=== PATIENT | male | born 1950 | race Caucasian/White ===

== ENCOUNTER 2018-03-01 09:15 | Inpatient (IN) | payer MEDICARE ==
[2018-03-01] MEDS ORDERED: SODIUM CHLORIDE 0.9% 1,000 ML IV STA (09:34)
[2018-03-01] MEDS ORDERED: VANCOMYCIN 1,750 MG in SODIUM CHLORIDE 0.9% 250 ML IVPB STA (09:38)
[2018-03-01] MEDS ORDERED: VANCOMYCIN IV PER PHARMACY 1 EACH MISC MISCELLANE PRN (09:38)
--- NOTE | 2018-03-01 09:38 | ED ---
General Adult HPI - General Chief complaint: Recheck/Abnormal Lab/Rx Stated complaint: Post Op Infection Time Seen by Provider: 03/01/18 09:24 Source: patient, RN notes reviewed Mode of arrival: ambulatory Limitations: no limitations - History of Present Illness Initial comments: Patient 68-year-old male presents to the Emergency room today with a chief complaint of possible infection to the left side of the face. He does admit that he had a cancerous growth removed last week. Patient states that he noticed some redness over the weekend. He did go back to the [facility] and was started on antibiotics Keflex. He states had a total of 3 doses. Patient states redness is worse today and more sensitivity to the left side of the face. Patient does admit to some drainage from the area. Patient denies any other complaints. Patient denies any recent fever, chills, shortness of breath, chest pain, abdominal pain, nausea or vomiting, numbness or tingling, headaches or visual changes, or any other complaints. - Related Data Home Medications Medication Instructions Recorded Confirmed Atorvastatin [Lipitor] 10 mg PO HS 03/01/18 03/01/18 Calcium 333mg/Mag 133mg/Zinc 1 tab PO DAILY 03/01/18 03/01/18 5mg/Vit D 200iu Cephalexin [Keflex] 500 mg PO QID 03/01/18 03/01/18 Enoxaparin [Lovenox] 150 mg SQ DAILY 03/01/18 03/01/18 FLUoxetine HCL [PROzac] 10 mg PO DAILY 03/01/18 03/01/18 Levothyroxine Sodium [Synthroid] 75 mcg PO DAILY 03/01/18 03/01/18 Lisinopril [Zestril] 10 mg PO DAILY 03/01/18 03/01/18 Tamsulosin HCl [Flomax] 0.8 mg PO HS 03/01/18 03/01/18 Vitamin B Complex 1 cap PO DAILY 03/01/18 03/01/18 Warfarin Sodium [Coumadin] 4 mg PO DIRECTED 03/01/18 03/01/18 Allergies Allergy/AdvReac Type Severity Reaction Status Date / Time Latex, Natural Rubber Allergy Rash/Hives Verified 03/01/18 10:27 Review of Systems ROS Statement: Those systems with pertinent positive or pertinent negative responses have been documented in the HPI. ROS Other: All systems not noted in ROS Statement are negative. Past Medical History Past Medical History: CVA/TIA Additional Past Medical History / Comment(s): Skin Cancer History of Any Multi-Drug Resistant Organisms: None Reported Past Surgical History: Bladder Surgery, Prostate Surgery Past Psychological History: No Psychological Hx Reported Smoking Status: Never smoker Past Alcohol Use History: Occasional Past Drug Use History: None Reported General Exam - General Exam Comments Initial Comments: General: The patient is awake and alert, in no distress, and does not appear acutely ill. Eye: Pupils are equal, round and reactive to light, extra-ocular movements are intact. No nystagmus. There is normal conjunctiva bilaterally. No signs of icterus. Ears, nose, mouth and throat: There are moist mucous membranes and no oral lesions. Neck: The neck is supple, there is no tenderness or JVD. Cardiovascular: There is a regular rate and rhythm. No murmur, rub or gallop is appreciated. Respiratory: Lungs are clear to auscultation, respirations are non-labored, breath sounds are equal. No wheezes, stridor, rales, or rhonchi. Musculoskeletal: Normal ROM, no tenderness. Strength 5/5. Sensation intact. Pulses equal bilaterally 2+. Neurological: A&O x 3. CN II-XII intact, There are no obvious motor or sensory deficits. Coordination appears grossly intact. Speech is normal. Skin: Surgical incision to the left side of her forehead. There is local redness surrounding the area going down towards the left cheek. Tender on exam Psychiatric: Cooperative, appropriate mood & affect, normal judgment. Limitations: no limitations Course Vital Signs 03/01/18 03/01/18 09:18 11:00 Temperature 97 F L Pulse Rate 88 80 Respiratory 18 20 Rate Blood Pressure 122/75 124/68 O2 Sat by Pulse 97 98 Oximetry Medical Decision Making - Medical Decision Making Patient's labs been reviewed. Her white count 11.3. Patient's INR 1.8 currently. Patient showed on vancomycin here in the emergency room for outpatient failure for cellulitis. Patient will be admitted to the hospital consult to Dr. Robison - Lab Data Result diagrams: 03/01/18 09:50 03/01/18 09:50 Lab Results 03/01/18 03/01/18 03/01/18 Range/Units 09:50 09:50 09:50 WBC 11.3 H (3.8-10.6) k/uL RBC 5.09 (4.30-5.90) m/uL Hgb 15.7 (13.0-17.5) gm/dL Hct 44.9 (39.0-53.0) % MCV 88.3 (80.0-100.0) fL MCH 30.8 (25.0-35.0) pg MCHC 34.9 (31.0-37.0) g/dL RDW 13.2 (11.5-15.5) % Plt Count 216 (150-450) k/uL Neutrophils % 76 % Lymphocytes % 13 % Monocytes % 7 % Eosinophils % 2 % Basophils % 0 % Neutrophils # 8.6 H (1.3-7.7) k/uL Lymphocytes # 1.5 (1.0-4.8) k/uL Monocytes # 0.8 (0-1.0) k/uL Eosinophils # 0.3 (0-0.7) k/uL Basophils # 0.0 (0-0.2) k/uL PT 16.4 H (9.0-12.0) sec INR 1.8 H (<1.2) APTT 36.0 H (22.0-30.0) sec Sodium 144 (137-145) mmol/L Potassium 4.4 (3.5-5.1) mmol/L Chloride 103 (98-107) mmol/L Carbon Dioxide 28 (22-30) mmol/L Anion Gap 13 mmol/L BUN 20 (9-20) mg/dL Creatinine 0.81 (0.66-1.25) mg/dL Est GFR (CKD-EPI)AfAm >90 (>60 ml/min/1.73 sqM) Est GFR (CKD-EPI)NonAf >90 (>60 ml/min/1.73 sqM) Glucose 79 (74-99) mg/dL Calcium 10.0 (8.4-10.2) mg/dL Total Bilirubin 0.9 (0.2-1.3) mg/dL AST 20 (17-59) U/L ALT 33 (21-72) U/L Alkaline Phosphatase 98 (38-126) U/L Total Protein 7.3 (6.3-8.2) g/dL Albumin 4.3 (3.5-5.0) g/dL Disposition Clinical Impression: Facial cellulitis Disposition: ADMITTED IP TO THIS HOSP Condition: Good Referrals: Harmony Ocasio DO [Primary Care Provider] - 1-2 days Time of Disposition: 11:22
[2018-03-01 10:13] LABS: Basophils % (A) 0 %; Eosinophils # (A) 0.3 k/uL (0-0.7); Eosinophils % (A) 2 %; HCT 44.9 % (39.0-53.0); HGB 15.7 gm/dL (13.0-17.5); Lymphocytes # (A) 1.5 k/uL (1.0-4.8); Lymphocytes % (A) 13 %; MCH 30.8 pg (25.0-35.0); MCHC 34.9 g/dL (31.0-37.0); MCV 88.3 fL (80.0-100.0); Mean Platelet Volume 7.5; Monocytes # (A) 0.8 k/uL (0-1.0); Monocytes % (A) 7 %; Neutrophils # (A) 8.6 k/uL (1.3-7.7); Neutrophils % (A) 76 %; Platelet Count 216 k/uL (150-450); RBC 5.09 m/uL (4.30-5.90); RDW 13.2 % (11.5-15.5); WBC 11.3 k/uL (3.8-10.6)
[2018-03-01 10:22] LABS: ALT 33 U/L (21-72); AST 20 U/L (17-59); Albumin 4.3 g/dL (3.5-5.0); Alkaline Phosphatase 98 U/L (38-126); Anion Gap 13 mmol/L; Blood Urea Nitrogen 20 mg/dL (9-20); Carbon Dioxide 28 mmol/L (22-30); Chloride 103 mmol/L (98-107); Glucose 79 mg/dL (74-99); Potassium 4.4 mmol/L (3.5-5.1); Sodium 144 mmol/L (137-145); Total Bilirubin 0.9 mg/dL (0.2-1.3); Total Protein 7.3 g/dL (6.3-8.2)
[2018-03-01 10:28] LABS: INR 1.8 (<1.2); Prothrombin Time 16.4 sec (9.0-12.0)
[2018-03-01] MEDS ORDERED: ACETAMINOPHEN TAB 325 MG TAB PO STA (11:32)
[2018-03-01] MEDS ORDERED: ONDANSETRON 4 MG/2 ML VIAL IVP PRN (11:43)
[2018-03-01] MEDS ORDERED: NALOXONE 0.4 MG/ML 1 ML VIAL IV PRN (11:43)
[2018-03-01] MEDS ORDERED: SODIUM CHLORIDE 0.9% 1,000 ML IV ONE (11:43)
[2018-03-01] MEDS ORDERED: NON-FORMULARY DRUG (Warfarin Sodium [Coumadin] 4 MG) PO SCH (13:45)
--- NOTE | 2018-03-01 14:57 | P.HPIM ---
History of Present Illness 68-year-old male with baseline speech abdominal distress from previous history of CVA came in with complaints of possible infection of the left scalp patient had a basal cell carcinoma and excision of the cancerous lesion in the dermatology clinic patient was subsequently sutured was given a dose of Keflex after he is found to have redness in the suture line area now he has pus coming out of that area although obvious abscesses not appreciated and patient denied any fever chills patient denied nausea vomiting because of the worsening infection up to 3 doses of Keflex family brought him here. Patient had the excision of this lesion more than a week ago and his is which is expected to be removed on . We'll try to get the sutures removed now Review of Systems REVIEW OF SYSTEMS: CONSTITUTIONAL: No fever, no malaise, no fatigue. HEENT: No recent visual problems or hearing problems. Denied any sore throat. CARDIOVASCULAR: No chest pain, orthopnea, PND, no palpitations, no syncope. PULMONARY: No shortness of breath, no cough, no hemoptysis. GASTROINTESTINAL: No diarrhea, no nausea, no vomiting, no abdominal pain. Normoactive bowel sounds. NEUROLOGICAL: No headaches, no weakness, no numbness. HEMATOLOGICAL: Denies any bleeding or petechiae. GENITOURINARY: Denies any burning micturition, frequency, or urgency. MUSCULOSKELETAL/RHEUMATOLOGICAL: Denies any joint pain, swelling, or any muscle pain. ENDOCRINE: Denies any polyuria or polydipsia. The rest of the 14-point review of systems is negative. 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 History of Any Multi-Drug Resistant Organisms: None Reported Past Surgical History: Bladder Surgery, Orthopedic Surgery, Prostate Surgery, Tonsillectomy Additional Past Surgical History / Comment(s): Bladder cancerous polypectomy, prostrate bxs, skin cancer L forehead removed, extra rib extracted, colonoscopy. Past Anesthesia/Blood Transfusion Reactions: No Reported Reaction Past Psychological History: No Psychological Hx Reported Additional Psychological History / Comment(s): Pt resides with his spouse. He uses a cane to ambulate. He drives. Smoking Status: Never smoker Past Alcohol Use History: Occasional Past Drug Use History: None Reported - Past Family History Father Family Medical History: CVA/TIA Additional Family Medical History / Comment(s): Father had a CVA and a year later from complications at the age of 82yrs. Mother Family Medical History: Liver Disease, Musculoskeletal Disorder, Neurologic Disorder, Osteoarthritis (OA) Additional Family Medical History / Comment(s): Mother had 5 total hip surgeries. She had blood transfusions. She had hepatitis C. She had parkinson' s dx. She at the age of 90yrs. Medications and Allergies Home Medications Medication Instructions Recorded Confirmed Type Atorvastatin [Lipitor] 10 mg PO HS 03/01/18 03/01/18 History Calcium 333mg/Mag 133mg/Zinc 1 tab PO DAILY 03/01/18 03/01/18 History 5mg/Vit D 200iu Cephalexin [Keflex] 500 mg PO QID 03/01/18 03/01/18 History Enoxaparin [Lovenox] 150 mg SQ DAILY 03/01/18 03/01/18 History FLUoxetine HCL [PROzac] 10 mg PO DAILY 03/01/18 03/01/18 History Levothyroxine Sodium [Synthroid] 75 mcg PO DAILY 03/01/18 03/01/18 History Lisinopril [Zestril] 10 mg PO DAILY 03/01/18 03/01/18 History Tamsulosin HCl [Flomax] 0.8 mg PO HS 03/01/18 03/01/18 History Vitamin B Complex 1 cap PO DAILY 03/01/18 03/01/18 History Warfarin Sodium [Coumadin] 4 mg PO DIRECTED 03/01/18 03/01/18 History Allergies Allergy/AdvReac Type Severity Reaction Status Date / Time Latex, Natural Rubber Allergy Rash/Hives Verified 03/01/18 10:27 Physical Exam Vitals: Vital Signs Temp Pulse Pulse Resp BP BP Pulse Ox 03/01/18 13:32 18 03/01/18 13:14 97.7 F 60 18 115/64 94 L 03/01/18 12:27 98.0 F 60 16 132/72 97 03/01/18 11:00 80 20 124/68 98 03/01/18 09:18 97 F L 88 18 122/75 97 Intake and Output 02/28/18 03/01/18 03/01/18 22:59 06:59 14:59 Intake Total 250 Balance 250 Intake: Intake, IV Titration 250 Amount Vancomycin 1,750 mg In 250 Sodium Chloride 0.9% 250 ml @ 125 mls/hr IVPB Q12H [facility] Rx#:[id number] Other: Weight 97.522 kg PHYSICAL EXAMINATION: GENERAL: The patient is alert and oriented x3, not in any acute distress. Well developed, well nourished. HEENT: Pupils are round and equally reacting to light. EOMI. No scleral icterus. No conjunctival pallor. Normocephalic, atraumatic. No pharyngeal erythema. No thyromegaly. CARDIOVASCULAR: S1 and S2 present. No murmurs, rubs, or gallops. PULMONARY: Chest is clear to auscultation, no wheezing or crackles. ABDOMEN: Soft, nontender, nondistended, normoactive bowel sounds. No palpable organomegaly. MUSCULOSKELETAL: No joint swelling or deformity. EXTREMITIES: No cyanosis, clubbing, or pedal edema. NEUROLOGICAL: Gross neurological examination did not reveal any focal deficits. SKIN: Patient had left supraorbital scalp area suture which of which has a redness surrounding the suture line area and on the lateral aspect of the suture line there is pus drainage, anaerobic and aerobic wound cultures will be obtained from that patient does have local is of temperature and bit of tenderness in that area Results CBC & Chem 7: 03/01/18 09:50 03/01/18 09:50 Labs: Abnormal Lab Results - Last 24 Hours (Table) 03/01/18 03/01/18 Range/Units 09:50 09:50 WBC 11.3 H (3.8-10.6) k/uL Neutrophils # 8.6 H (1.3-7.7) k/uL PT 16.4 H (9.0-12.0) sec INR 1.8 H (<1.2) APTT 36.0 H (22.0-30.0) sec Thrombosis Risk Factor Assmnt - Choose All That Apply Any of the Below Risk Factors Present?: Yes Each Factor Represents 1 point: Obesity (BMI >25) Other Risk Factors: Yes Each Risk Factor Represents 2 Points: Age 61-74 years, Malignancy Other congenital or acquired thrombophilia - If yes, enter type in comment: No Thrombosis Risk Factor Assessment Total Risk Factor Score: 5 Thrombosis Risk Factor Assessment Level: High Risk Assessment and Plan Plan: -Infection of the left scalp post surgical suture area, cellulitis of that area : Patient was started on vancomycin alone cultures will be obtained patient doesn't have any history of MRSA in the past patient complains that pain goes into back of the year which is a referred pain there is some tenderness in that area as well may be secondary to liver lymphadenopathy. Patient's disease will be consulted sutures need to be removed -History of basal cell cancer which was recently removed -She of CVA with residual speech abnormalities. -Benign prostatic hypertrophy next and-hypothyroidism -Depression -History of blood disorder as per the patient for which patient is on anticoagulation because of that blood disorder and CVA in the past patient is presently on bridging Lovenox with INR of around 1.9 patient's Coumadin will be resumed repeat INR tomorrow and Lovenox will be continued until the his INR is above 2.5
[2018-03-01] MEDS: VANCOMYCIN 1,750 MG in SODIUM CHLORIDE 0.9% 250 ML IVPB SCH (18:19)
[2018-03-01] MEDS: WARFARIN 2 MG TAB PO SCH (18:22)
[2018-03-01] MEDS: MUPIROCIN 2% OINT 22 GM TUBE TOPICAL SCH (19:53)
[2018-03-01] MEDS: TAMSULOSIN 0.4 MG CAP.ER.24H PO SCH (19:53)
[2018-03-01] MEDS: ATORVASTATIN 10 MG TAB PO SCH (19:53)
--- NOTE | 2018-03-01 22:32 | CONS ---
CONSULTATION DATE OF SERVICE: 03/01/2018 REASON FOR CONSULTATION: Left facial cellulitis. HISTORY OF PRESENT ILLNESS: The patient is a 68-year-old male who recently had a cancerous tumor removed from the left side of his face about a week ago, last Wednesday, in the outpatient setting at [facility]. The patient says over the weekend he noticed slight erythema around the incision site with the area becoming more swollen, red and painful, for which the patient was evaluated in the outpatient setting by his custody officer. The patient was started on oral Keflex, and the patient took about 3 doses. However, the area was becoming more painful. Pain was described to be throbbing, 5 to 6 out of 10, with no radiation for the same 2 to 3 days. The patient also had slight drainage from it and started having some rigors and chills but no high-grade fever. With these symptoms, the patient presented to the [facility] ER, where the patient was evaluated by the ER physician and has been diagnosed with facial cellulitis, failing outpatient Keflex therapy. The patient was started on vancomycin and admitted to hospital. Infectious Disease was consulted for further recommendations regarding antibiotic therapy. REVIEW OF SYSTEMS: CONSTITUTIONAL: Positive for weakness and chills. EYES: No complaint. ENT: As per HPI. RESPIRATORY: No complaint. CARDIOVASCULAR: No complaint. GENITOURINARY: No complaint. GASTROINTESTINAL: No complaint. MUSCULOSKELETAL: No complaint. INTEGUMENTARY: As per HPI. PSYCHOLOGICAL: No complaint. ENDOCRINE: No complaint. NEUROLOGICAL: No complaint. PAST MEDICAL HISTORY: 1. CVA, TIA. 2. Skin cancer. 3. Hypertension. 4. Hyperlipidemia. 5. Bladder cancer. PAST SURGICAL HISTORY: 1. Prostate surgery. 2. Bladder cancer removed. 3. Tonsillectomy. 4. Colonoscopy. 5. Left forehead cancer removed. 6. Rib resection. SOCIAL HISTORY: No history of smoking. Occasionally drinks. No drug use. FAMILY HISTORY: Father with history of CVA, TIA. Mother with history of liver disease and osteoarthritis. ALLERGIES: LATEX. CURRENT MEDICATIONS: 1. Tylenol. 2. [place]oomis. 3. Lipitor. 4. Lovenox. 5. Synthroid. 6. Zestril. 7. Zofran. 8. Flomax. 9. Vancomycin, Pharmacy to dose. 10.Coumadin. PHYSICAL EXAMINATION: Blood pressure 115/64 with a pulse of 60, temperature 97.7. He is 94% on room air. General description is an elderly male lying in bed in no distress. No tachypnea or accessory muscle of respiration use. HEENT examination shows no pallor or scleral icterus. Examination of the left facial area around the surgery he had shows purulent drainage. It has already been cultured. No significant induration or fluctuation was noticed. NECK: Trachea is central. There is no thyromegaly. LUNGS: Unlabored breathing. Clear to auscultation anteriorly. No wheeze or crackle. HEART: S1, S2. Regular rate and rhythm. ABDOMEN: Soft. No tenderness. No guarding or rigidity. EXTREMITIES: No edema of the feet. SKIN EXAMINATION: No rash or mass palpable. Neurologically patient is awake, alert, oriented x3. Mood and affect normal. LABS: Hemoglobin is 15.7, white count 11.3, BUN of 20, creatinine 0.81. Electrolytes have been normal. Blood culture obtained and currently pending. Wound culture currently pending. DIAGNOSTIC IMPRESSION AND PLAN: Patient with left facial cellulitis with surgical site infection in a patient who did have resection of a cancerous tumor from the left facial area, failing outpatient oral Keflex therapy. Concern is likely for a community-associated MRSA infection, less likely a Gram-negative infection. PLAN: 1. Vancomycin, Pharmacy to dose, target trough of 15. 2. ABD/4x4s to be at the site to the area drained. No need for any dressing. This was explained to the RN. 3. We will follow up on the clinical condition as well as cultures to further adjust medication if needed. Thank you for this consultation. Will follow this patient along with you. MMODL / IJN: [id number] /
[2018-03-01] MEDS: ACETAMINOPHEN TAB 325 MG TAB PO PRN (22:47)
[2018-03-02] MEDS: VANCOMYCIN 1,750 MG in SODIUM CHLORIDE 0.9% 250 ML IVPB SCH ×2 (05:39→17:20)
[2018-03-02] MEDS: LEVOTHYROXINE 75 MCG TAB PO SCH (05:39)
[2018-03-02 07:56] LABS: Basophils % (A) 1 %; Eosinophils # (A) 0.2 k/uL (0-0.7); Eosinophils % (A) 3 %; HCT 38.9 % (39.0-53.0); HGB 13.7 gm/dL (13.0-17.5); Lymphocytes # (A) 1.4 k/uL (1.0-4.8); Lymphocytes % (A) 21 %; MCH 31.5 pg (25.0-35.0); MCHC 35.3 g/dL (31.0-37.0); MCV 89.4 fL (80.0-100.0); Mean Platelet Volume 7.2; Monocytes # (A) 0.8 k/uL (0-1.0); Monocytes % (A) 11 %; Neutrophils # (A) 4.4 k/uL (1.3-7.7); Neutrophils % (A) 63 %; Platelet Count 194 k/uL (150-450); RBC 4.35 m/uL (4.30-5.90)
[2018-03-02 08:20] LABS: Anion Gap 10 mmol/L; Blood Urea Nitrogen 16 mg/dL (9-20); Calcium 8.9 mg/dL (8.4-10.2); Carbon Dioxide 25 mmol/L (22-30); Chloride 107 mmol/L (98-107); Glucose 88 mg/dL (74-99); Potassium 4.3 mmol/L (3.5-5.1); Sodium 142 mmol/L (137-145)
[2018-03-02] MEDS: LISINOPRIL 10 MG TAB PO SCH ×2 (08:45→10:18)
[2018-03-02] MEDS: ACETAMINOPHEN TAB 325 MG TAB PO PRN ×2 (08:46→20:39)
[2018-03-02] MEDS: ENOXAPARIN 150 MG/ML SYRINGE SQ SCH (08:49)
[2018-03-02] MEDS: MUPIROCIN 2% OINT 22 GM TUBE TOPICAL SCH ×2 (09:27→20:40)
[2018-03-02] MEDS: FLUoxetine HCL 10 MG CAP PO SCH (12:55)
--- NOTE | 2018-03-02 16:00 | PN ---
PROGRESS NOTE DATE OF SERVICE: 03/02/2018. REASON FOR FOLLOWUP: Left facial cellulitis and surgical site infection. INTERVAL HISTORY: The patient is afebrile. The patient did have stitches removed and drainage of that abscess. The patient tolerated the procedure. Pain is currently controlled. Denies having any chest pain, shortness of breath. No cough. No abdominal pain. No diarrhea. EXAMINATION: Blood pressure 119/75, pulse of 60, temperature 97.2. He is 94% on room air. General description is an elderly male up in the chair in no distress. HEENT examination: The left facial side of the surgical site is currently covered with no drainage on the abscess. Did have evidence of a postauricular lymphadenopathy. Lungs unlabored breathing. Clear to auscultation anteriorly. Heart S1, S2. Regular rate and rhythm. Abdomen soft, no tenderness. LABS: Hemoglobin 13.5, white count 7.0, BUN of 15, creatinine 0.73. Wound culture currently pending. DIAGNOSTIC IMPRESSION AND PLAN: Patient with left facial cellulitis with surgical site infection. Culture positive for gram-positive cocci, more likely Staphylococcus aureus. Give the patient vancomycin while waiting for the culture to finalize to determine discharge antibiotics. Continue supportive care. MMODL / IJN: [id number] /
--- NOTE | 2018-03-02 16:57 | CONS ---
CONSULTATION DATE OF CONSULT: 03/01/2018. REQUESTING PHYSICIAN: Dr. Wong. REASON FOR CONSULTATION: Cellulitis. HPI: The patient is a 68-year-old male presenting today with a erythematous well- demarcated plaque on the left side of her face. The patient was seen on 02/23/2018 for Mohs surgery of a nodular BCC at [facility]. Patient states that on 02/26/2018, he started experiencing pain and swelling around the incision site. The patient was seen in Dermatology clinic on 02/28/2018 for possible infection. Patient was given Keflex 500 mg 4 times a day x10 days and mupirocin to apply b.i.d. topically. The patient states he took 2 Keflex, on 02/28/2018 and 1 on 03/01/2018. The patient noted increased drainage and redness and decided to go to the hospital. PAST MEDICAL HISTORY: Patient has a history of a BCC on the left inferior central forehead, arthritis , BPH, hypercholesteremia, hypothyroidism, prostate cancer, and stroke. PAST SURGICAL HISTORY: Patient had Mohs surgery for nodular BCC on 02/23/2018. MEDICATION: On admission see chart. ALLERGIES: LATEX. SOCIAL HISTORY: The patient denies tobacco or illegal substance abuse. Admits to one 12 ounces beer daily. REVIEW OF SYSTEMS: Vital signs: Temperature is 97.2 degrees Fahrenheit, pulse is 60 beats per minute, and respirations 18 per minute. Blood pressure is 119/75. GENERAL: The patient is currently in no apparent distress. He is alert and oriented x3. He is well nourished, well developed, cooperative, not anxious or agitated. Neurological: Cranial nerves 2- 12 are grossly intact. Head and neck. HEAD: Normocephalic and atraumatic. NECK: Supple. Trachea is midline. No JVD noted. Lungs, respirations are unlabored. Extremities, no focal neurological defects noted. Skin erythematous, tender, fluctuant plaque on the left forehead and face. LABORATORY DATA: See chart. IMPRESSION AND RECOMMENDATIONS: Abscess- sutures removed in hospital. Abscess draining from a small opening. Mupirocin ordered b.i.d. with dressing changes and continue vancomycin while cultures are pending. Patient is to follow up as an outpatient at Dermatology Clinic when he is DC from hospital. Thank you for this consult. MMODL / IJN: [id number] / MTDD
[2018-03-02] MEDS: WARFARIN 2 MG TAB PO SCH (17:20)
--- NOTE | 2018-03-02 18:14 | P.PN ---
Subjective Progress Note Date: 03/02/18 Progress note being dictated for Dr. Marino. Interval history:68-year-old male with baseline speech abdominal distress from previous history of CVA came in with complaints of possible infection of the left scalp patient had a basal cell carcinoma and excision of the cancerous lesion in the dermatology clinic patient was subsequently sutured was given a dose of Keflex after he is found to have redness in the suture line area now he has pus coming out of that area although obvious abscesses not appreciated and patient denied any fever chills patient denied nausea vomiting because of the worsening infection up to 3 doses of Keflex family brought him here. Patient had the excision of this lesion more than a week ago and his is which is expected to be removed on . We'll try to get the sutures removed now Review of Systems REVIEW OF SYSTEMS: CONSTITUTIONAL: No fever, no malaise, no fatigue. HEENT: No recent visual problems or hearing problems. Denied any sore throat. CARDIOVASCULAR: No chest pain, orthopnea, PND, no palpitations, no syncope. PULMONARY: No shortness of breath, no cough, no hemoptysis. GASTROINTESTINAL: No diarrhea, no nausea, no vomiting, no abdominal pain. Normoactive bowel sounds. NEUROLOGICAL: No headaches, no weakness, no numbness. HEMATOLOGICAL: Denies any bleeding or petechiae. GENITOURINARY: Denies any burning micturition, frequency, or urgency. MUSCULOSKELETAL/RHEUMATOLOGICAL: Denies any joint pain, swelling, or any muscle pain. ENDOCRINE: Denies any polyuria or polydipsia. The rest of the 14-point review of systems is negative. 03/02/18 evaluated by dermatology, sutures removed with recommendations pending. Maintained on IV antibiotics of vancomycin. Afebrile, normal WBC. Cultures pending. Objective - Vital Signs Vital signs: Vital Signs Temp 97.6 F 03/02/18 16:03 Pulse 64 03/02/18 16:03 Resp 16 03/02/18 16:03 BP 110/71 03/02/18 16:03 Pulse Ox 98 03/02/18 16:03 Intake & Output 03/01/18 03/02/18 03/02/18 18:59 06:59 18:59 Intake Total 250 300 Balance 250 300 Weight 97.522 kg Intake: Intake, IV Titration 250 300 Amount Sodium Chloride 0.9% 1, 300 000 ml @ 100 mls/hr IV . Q10H [facility] Rx#:[id number] Vancomycin 1,750 mg In 250 Sodium Chloride 0.9% 250 ml @ 125 mls/hr IVPB Q12H [facility] Rx#:[id number] Other: Voiding Method Toilet Toilet Urinal Urinal # Voids 2 2 - Exam GENERAL: The patient is alert and oriented x3, not in any acute distress. Well developed, well nourished. HEENT: Pupils are round and equally reacting to light. EOMI. No scleral icterus. No conjunctival pallor. Normocephalic, atraumatic. No pharyngeal erythema. No thyromegaly. CARDIOVASCULAR: S1 and S2 present. No murmurs, rubs, or gallops. PULMONARY: Chest is clear to auscultation, no wheezing or crackles. ABDOMEN: Soft, nontender, nondistended, normoactive bowel sounds. No palpable organomegaly. MUSCULOSKELETAL: No joint swelling or deformity. EXTREMITIES: No cyanosis, clubbing, or pedal edema. NEUROLOGICAL: Gross neurological examination did not reveal any focal deficits. SKIN: Patient had left supraorbital scalp area suture removed; pus drainage, and bit of tenderness in that area - Labs CBC & Chem 7: 03/02/18 07:11 03/02/18 07:11 Labs: Abnormal Lab Results - Last 24 Hours (Table) 03/02/18 Range/Units 07:11 Hct 38.9 L (39.0-53.0) % Microbiology - Last 24 Hours (Table) 03/01/18 10:12 Gram Stain - Preliminary Face Wound Culture - Preliminary 03/01/18 09:50 Blood Culture - Preliminary Blood No Growth after 24 hours 03/01/18 13:48 Anaerobic Culture - Preliminary Face Assessment and Plan Assessment: -Infection of the left scalp post surgical suture area, cellulitis of that area -History of basal cell cancer which was recently removed -She of CVA with residual speech abnormalities. -Benign prostatic hypertrophy next and-hypothyroidism -Depression -History of blood disorder as per the patient for which patient is on anticoagulation because of that blood disorder and CVA in the past patient is presently on bridging Lovenox with INR of around 1.9 patient's Coumadin will be resumed repeat INR tomorrow and Lovenox will be continued until the his INR is above 2.5 Plan: Continue on current medication regime or monitoring and symptomatic treatment. Maintain IV antibiotics as per infectious disease. Cultures pending. Increase ambulation as tolerated. The impression and plan of care has been dictated as directed. : I performed a history and examination of this patient, discussed the same with the dictator. I agree with the dictator's note ,documented as a scribe. Any additional findings or plans will be noted.
[2018-03-02] MEDS: TAMSULOSIN 0.4 MG CAP.ER.24H PO SCH (20:39)
[2018-03-02] MEDS: ATORVASTATIN 10 MG TAB PO SCH (20:39)
[2018-03-03] MEDS ORDERED: VANCOMYCIN TROUGH DUE 1 EACH MISC MISCELLANE ONE (05:00)
[2018-03-03 05:46] LABS: INR 1.9 (<1.2); Prothrombin Time 17.7 sec (9.0-12.0)
[2018-03-03 05:49] LABS: Anion Gap 13 mmol/L; Blood Urea Nitrogen 20 mg/dL (9-20); Calcium 9.2 mg/dL (8.4-10.2); Carbon Dioxide 24 mmol/L (22-30); Chloride 105 mmol/L (98-107); Glucose 94 mg/dL (74-99); Potassium 4.1 mmol/L (3.5-5.1); Sodium 142 mmol/L (137-145)
[2018-03-03] MEDS: VANCOMYCIN 1,750 MG in SODIUM CHLORIDE 0.9% 250 ML IVPB SCH ×2 (06:01→19:08)
[2018-03-03] MEDS: LEVOTHYROXINE 75 MCG TAB PO SCH (06:01)
[2018-03-03] MEDS: ACETAMINOPHEN TAB 325 MG TAB PO PRN (06:09)
[2018-03-03] MEDS: ENOXAPARIN 150 MG/ML SYRINGE SQ SCH (08:35)
[2018-03-03] MEDS: HYDROcodone/APAP 5-325MG 1 EACH TAB PO PRN ×2 (08:35→16:31)
[2018-03-03] MEDS: FLUoxetine HCL 10 MG CAP PO SCH (08:36)
[2018-03-03] MEDS: MUPIROCIN 2% OINT 22 GM TUBE TOPICAL SCH ×2 (08:39→20:40)
[2018-03-03] MEDS: LISINOPRIL 10 MG TAB PO SCH (08:39)
--- NOTE | 2018-03-03 15:52 | PN ---
PROGRESS NOTE DATE OF SERVICE: 03/03/2018. REASON FOR FOLLOWUP: Left facial cellulitis and surgical site infection. INTERVAL HISTORY: The patient is afebrile. The patient did mention overall pain and swelling to the left facial area has improved. Denies having any chest pain, shortness of breath or cough. No abdominal pain, no diarrhea. EXAMINATION: Blood pressure is 107/58 with a pulse of 56, temperature 97.6. He is 94% on room air. General description is an elderly male up in the chair in no distress. HEENT EXAMINATION: Left facial area wound swelling and redness improved, minimal drainage. LUNGS: Unlabored breathing. Clear to auscultation anteriorly. HEART: S1, S2. Regular rate and rhythm. ABDOMEN: Soft, no tenderness. LABS: INR is 1.9 with a BUN of 20, creatinine 0.80. White count was 14.8. Blood culture so far negative. DIAGNOSTIC IMPRESSION AND PLAN: Patient with left facial cellulitis with surgical site infection, status post removal of the stitches and abscess has been drained, currently responding to vancomycin, which will be continued. Wait for those cultures to finalize to determine discharge antibiotics. Continue supportive care. MMODL / IJN: [id number] /
--- NOTE | 2018-03-03 16:58 | P.PN ---
Subjective Progress Note Date: 03/03/18 Progress note being dictated for Dr. Mraino. Interval history:68-year-old male with baseline speech abdominal distress from previous history of CVA came in with complaints of possible infection of the left scalp patient had a basal cell carcinoma and excision of the cancerous lesion in the dermatology clinic patient was subsequently sutured was given a dose of Keflex after he is found to have redness in the suture line area now he has pus coming out of that area although obvious abscesses not appreciated and patient denied any fever chills patient denied nausea vomiting because of the worsening infection up to 3 doses of Keflex family brought him here. Patient had the excision of this lesion more than a week ago and his is which is expected to be removed on . We'll try to get the sutures removed now Review of Systems REVIEW OF SYSTEMS: CONSTITUTIONAL: No fever, no malaise, no fatigue. HEENT: No recent visual problems or hearing problems. Denied any sore throat. CARDIOVASCULAR: No chest pain, orthopnea, PND, no palpitations, no syncope. PULMONARY: No shortness of breath, no cough, no hemoptysis. GASTROINTESTINAL: No diarrhea, no nausea, no vomiting, no abdominal pain. Normoactive bowel sounds. NEUROLOGICAL: No headaches, no weakness, no numbness. HEMATOLOGICAL: Denies any bleeding or petechiae. GENITOURINARY: Denies any burning micturition, frequency, or urgency. MUSCULOSKELETAL/RHEUMATOLOGICAL: Denies any joint pain, swelling, or any muscle pain. ENDOCRINE: Denies any polyuria or polydipsia. The rest of the 14-point review of systems is negative. 03/02/18 evaluated by dermatology, sutures removed with recommendations pending. Maintained on IV antibiotics of vancomycin. Afebrile, normal WBC. Cultures pending 03/03/2018 no overnight events. Significant improvement in facial edema. Maintained on IV vancomycin as per infectious disease. Wound culture reporting presumptive staph aureus. Afebrile, normal WBC. INR 1.9. Good diet intake with no nausea vomiting or diarrhea. Denies chest pain, palpitations or shortness of breath. Denies cough. Objective - Vital Signs Vital signs: Vital Signs Temp 97.6 F 03/03/18 15:00 Pulse 66 03/03/18 15:00 Resp 18 03/03/18 15:00 BP 122/64 03/03/18 15:00 Pulse Ox 96 03/03/18 15:00 Intake & Output 03/02/18 03/03/18 03/03/18 18:59 06:59 18:59 Intake Total 300 260 Balance 300 260 Intake: IV 260 Invasive Line 1 10 Vancomycin 1,750 mg In 250 Sodium Chloride 0.9% 250 ml @ 125 mls/hr IVPB Q12H [facility] Rx#:[id number] Oral 300 Other: Voiding Method Toilet Toilet Urinal Urinal # Voids 2 1 1 - Exam GENERAL: The patient is alert and oriented x3, sitting up in chair, no acute distress. Well developed, well nourished. HEENT: Pupils are round and equally reacting to light. EOMI. No scleral icterus. No conjunctival pallor. Normocephalic, atraumatic. CARDIOVASCULAR: S1 and S2 present. No murmurs, rubs, or gallops. PULMONARY: Chest is clear to auscultation, no wheezing or crackles. ABDOMEN: Soft, nontender, nondistended, normoactive bowel sounds. No palpable organomegaly. MUSCULOSKELETAL: No joint swelling or deformity. EXTREMITIES: No cyanosis, clubbing, or pedal edema. NEUROLOGICAL: Gross neurological examination did not reveal any focal deficits. SKIN: left supraorbital scalp area dressing with minimal drainage. Edema, tenderness, erythema improving. Microbiology 03/01/18 13:48 Face Anaerobic Culture - Preliminary Presumptive Staph aureus 03/01/18 10:12 Face Gram Stain - Final 03/01/18 10:12 Face Wound Culture - Final 03/01/18 09:50 Blood Blood Culture - Preliminary No Growth after 48 hours - Labs CBC & Chem 7: 03/02/18 07:11 03/03/18 05:21 Labs: Abnormal Lab Results - Last 24 Hours (Table) 03/03/18 Range/Units 05:21 PT 17.7 H (9.0-12.0) sec INR 1.9 H (<1.2) Microbiology - Last 24 Hours (Table) 03/01/18 13:48 Anaerobic Culture - Preliminary Face Presumptive Staph aureus 03/01/18 10:12 Gram Stain - Final Face Wound Culture - Final 03/01/18 09:50 Blood Culture - Preliminary Blood No Growth after 48 hours Assessment and Plan Assessment: -Infection of the left scalp post surgical suture area, cellulitis of that area , wound cultures with presumptive staph currently -History of basal cell cancer which was recently removed -She of CVA with residual speech abnormalities. -Benign prostatic hypertrophy next and-hypothyroidism -Depression -History of blood disorder as per the patient for which patient is on anticoagulation because of that blood disorder and CVA in the past patient is presently on bridging Lovenox with INR of around 1.9 patient's Coumadin will be resumed repeat INR tomorrow and Lovenox will be continued until the his INR is above 2.5 Plan: Continue on current medication regime or monitoring and symptomatic treatment. Maintain IV antibiotics as per infectious disease. Discharge planning in progress pending final Cultures. Increase ambulation as tolerated. The impression and plan of care has been dictated as directed. : I performed a history and examination of this patient, discussed the same with the dictator. I agree with the dictator's note ,documented as a scribe. Any additional findings or plans will be noted.
[2018-03-03] MEDS: WARFARIN 2 MG TAB PO SCH (19:08)
[2018-03-03] MEDS: TAMSULOSIN 0.4 MG CAP.ER.24H PO SCH (20:40)
[2018-03-03] MEDS: ATORVASTATIN 10 MG TAB PO SCH (20:57)
[2018-03-03 22:29] VITALS: RESP 16
[2018-03-04] MEDS: LEVOTHYROXINE 75 MCG TAB PO SCH (05:31)
[2018-03-04] MEDS: VANCOMYCIN 1,750 MG in SODIUM CHLORIDE 0.9% 250 ML IVPB SCH (05:31)
[2018-03-04] MEDS: HYDROcodone/APAP 5-325MG 1 EACH TAB PO PRN (05:35)
[2018-03-04] MEDS: LISINOPRIL 10 MG TAB PO SCH (07:52)
[2018-03-04] MEDS: FLUoxetine HCL 10 MG CAP PO SCH (07:52)
[2018-03-04] MEDS: ENOXAPARIN 150 MG/ML SYRINGE SQ SCH (07:52)
[2018-03-04] MEDS: MUPIROCIN 2% OINT 22 GM TUBE TOPICAL SCH (07:53)
[2018-03-04 08:17] VITALS: BP 122/70; PULSE 60; TEMP 98
[2018-03-04 08:21] LABS: Anion Gap 13 mmol/L; Blood Urea Nitrogen 22 mg/dL (9-20); Carbon Dioxide 25 mmol/L (22-30); Chloride 103 mmol/L (98-107); Glucose 89 mg/dL (74-99); Potassium 4.4 mmol/L (3.5-5.1); Sodium 141 mmol/L (137-145)
[2018-03-04 13:30] LABS: Prothrombin Time 17.8 sec (9.0-12.0)
--- NOTE | 2018-03-04 13:53 | PN ---
PROGRESS NOTE DATE OF SERVICE: 03/04/2018 REASON FOR FOLLOWUP: Left facial cellulitis, surgical site infection. INTERVAL HISTORY: The patient is afebrile, he is feeling better. Pain to the left facial area is currently down to 2/10. Denies having any chest pain, shortness of breath, no cough, no abdominal pain and no diarrhea. PHYSICAL EXAMINATION: Blood pressure 122/70 with a pulse of 80, temperature 98. He is 96% on room air. General description is a middle-aged male up in the chair in no distress. HEENT EXAMINATION: Left facial swelling, redness which improved. LUNGS: Unlabored breathing, clear to auscultation anteriorly. HEART: S1, S2. Regular rate and rhythm. ABDOMEN: Soft, no tenderness. LABS: BUN of 22, creatinine 0.76. Wound culture finalized with MSSA blood culture, negative. DIAGNOSTIC IMPRESSION AND PLAN: Patient with left facial cellulitis, site of a surgical resection of a tumor with drainage of the abscess. Culture with methicillin-susceptible Staphylococcus aureus. antibiotic switched over to Keflex 500 mg 3 times a day for another 10 days. Patient advised to monitor his INR closely while on antibiotic and will re-evaluate the patient after about a week. MMODL / IJN: [id number] /
--- NOTE | 2018-03-04 17:05 | P.DS ---
Providers Date of admission: 03/01/18 11:36 Expected date of discharge: 03/04/18 Attending physician: Luan Marino Consults: 03/01/18 11:43 Consult Physician Stat Consulting Provider: Dianne Robison Consult Reason/Comments: Facial cellulitis Do you want consulting provider notified?: Yes 03/01/18 13:46 Consult Physician Routine Consulting Provider: Javid Ferrara Consult Reason/Comments: Facial Cellulitis Do you want consulting provider notified?: Yes Primary care physician: Harmony Ocasio Hospital Course: Final Diagnoses: -Infection of the left scalp post surgical suture area, cellulitis of that area , wound cultures with MSSA -History of basal cell cancer which was recently removed -She of CVA with residual speech abnormalities. -Benign prostatic hypertrophy next and-hypothyroidism -Depression -History of blood disorder as per the patient for which patient is on anticoagulation because of that blood disorder and CVA in the past patient is presently on bridging Lovenox with Coumadin. INR currently 2. Hospital course: This is a 68-year-old male with baseline speech abdominal distress from previous history of CVA came in with complaints of possible infection of the left scalp patient had a basal cell carcinoma and excision of the cancerous lesion in the dermatology clinic patient was subsequently sutured was given a dose of Keflex after he is found to have redness in the suture line area now he has pus coming out of that area although obvious abscesses not appreciated and patient denied any fever chills patient denied nausea vomiting because of the worsening infection up to 3 doses of Keflex family brought him here. Patient had the excision of this lesion more than a week ago. Evaluated by dermatology, sutures removed. Evaluated by infectious disease. Maintained on IV antibiotics. Wound cultures reporting MSSA. Significant clinical improvement. Cleared by all consults for discharge. Patient is being discharged home in stable condition with guarded prognosis. Microbiology 03/01/18 09:50 Blood Blood Culture - Preliminary No Growth after 72 hours 03/01/18 13:48 Face Anaerobic Culture - Preliminary Staphylococcus aureus 03/01/18 10:12 Face Gram Stain - Final 03/01/18 10:12 Face Wound Culture - Final PHYSICAL EXAM: GENERAL: VSS,alert and oriented x3, sitting up in chair, no acute distress. CARDIOVASCULAR: S1 and S2 present. No murmurs, rubs, or gallops. PULMONARY: Chest is clear to auscultation, no wheezing or crackles. ABDOMEN: Soft, nontender, nondistended, normoactive bowel sounds. No palpable organomegaly. NEUROLOGICAL: Gross neurological examination did not reveal any focal deficits. SKIN: left supraorbital scalp area dressing with minimal drainage. The impression and plan of care has been dictated as directed. : I performed a history and examination of this patient, discussed the same with the dictator. I agree with the dictator's note ,documented as a scribe. Any additional findings or plans will be noted. Time taken: 35 minutes Patient Condition at Discharge: Stable Plan - Discharge Summary Discharge Rx Participant: No New Discharge Prescriptions: New Mupirocin 2% Oint [Bactroban 2% Oint] 1 applic TOPICAL BID applic Cephalexin [Keflex] 500 mg PO Q8HR #30 cap Continue Enoxaparin [Lovenox] 150 mg SQ DAILY Tamsulosin HCl [Flomax] 0.8 mg PO HS Atorvastatin [Lipitor] 10 mg PO HS Warfarin Sodium [Coumadin] 4 mg PO DIRECTED Calcium 333mg/Mag 133mg/Zinc 5mg/Vit D 200iu 1 tab PO DAILY Vitamin B Complex 1 cap PO DAILY FLUoxetine HCL [PROzac] 10 mg PO DAILY Lisinopril [Zestril] 10 mg PO DAILY Levothyroxine Sodium [Synthroid] 75 mcg PO DAILY Discharge Medication List Atorvastatin [Lipitor] 10 mg PO HS 03/01/18 [History] Calcium 333mg/Mag 133mg/Zinc 5mg/Vit D 200iu 1 tab PO DAILY 03/01/18 [History] Enoxaparin [Lovenox] 150 mg SQ DAILY 03/01/18 [History] FLUoxetine HCL [PROzac] 10 mg PO DAILY 03/01/18 [History] Levothyroxine Sodium [Synthroid] 75 mcg PO DAILY 03/01/18 [History] Lisinopril [Zestril] 10 mg PO DAILY 03/01/18 [History] Tamsulosin HCl [Flomax] 0.8 mg PO HS 03/01/18 [History] Vitamin B Complex 1 cap PO DAILY 03/01/18 [History] Warfarin Sodium [Coumadin] 4 mg PO DIRECTED 03/01/18 [History] Cephalexin [Keflex] 500 mg PO Q8HR #30 cap 03/04/18 [Rx] Mupirocin 2% Oint [Bactroban 2% Oint] 1 applic TOPICAL BID applic 03/04/18 [Rx] Follow up Appointment(s)/Referral(s): Monica Hobbs, PAC [PHYSICIAN [facility] [employer]] - 1 Week (Appt. as previously scheduled on . If discharge has not taken place by , patient may do a walk in appt. on Wednesday or Wednesday with Janine Brown. ) Harmony Ocasio DO [Primary Care Provider] - 03/08/18 11:20 am Javid Ferrara MD [STAFF PHYSICIAN] - 1 Week Ambulatory/Diagnostic Orders: Prothrombin Time INR [LAB.AMB] Time Frame: 03/07/18, Location: Determined By Patient Patient Instructions/Handouts: Cellulitis (DC) Activity/Diet/Wound Care/Special Instructions: antibx as per ID Discharge Disposition: HOME SELF-CARE
== END 2018-03-04 14:30 | disposition home or self-care (01) | DRG 863 ==
LOC: EC 09:15 → 5MS5E 11:36
PROVIDERS: ADMIT Hospitalist; ATTEND Hospitalist
DX: T81.4XXA Infection following a procedure, initial encounter (principal); I69.359 Hemiplegia and hemiparesis following cerebral infarction affecting unspecified side; I69.328 Other speech and language deficits following cerebral infarction; L03.811 Cellulitis of head [any part, except face]; E03.9 Hypothyroidism, unspecified; N40.0 Benign prostatic hyperplasia without lower urinary tract symptoms; F32.9 Major depressive disorder, single episode, unspecified; B95.61 Methicillin susceptible Staphylococcus aureus infection as the cause of diseases classified elsewhere; E78.00 Pure hypercholesterolemia, unspecified; I10 Essential (primary) hypertension; R59.1 Generalized enlarged lymph nodes; Z91.040 Latex allergy status; Z79.899 Other long term (current) drug therapy; Z79.01 Long term (current) use of anticoagulants; Z85.828 Personal history of other malignant neoplasm of skin; Z82.3 Family history of stroke; Z82.0 Family history of epilepsy and other diseases of the nervous system; Z85.51 Personal history of malignant neoplasm of bladder; Z85.46 Personal history of malignant neoplasm of prostate; Z90.89 Acquired absence of other organs
CPT/HCPCS: 36415; 80048; 80053; 80202; 85025; 85610; 85730; 87040; 87070; 87075; 87077; 87186; 87205; 96365; 96366; 99284

== ENCOUNTER → 2018-06-02 | Outpatient (CLI) | payer MEDICARE | END | disposition home or self-care (01) | LOC: RADUSWWP 12:55 | PROVIDERS: ATTEND Family Medicine | DX: I73.9 Peripheral vascular disease, unspecified (principal) | CPT/HCPCS: 93923 ==

== ENCOUNTER 2019-01-19 14:03 | Emergency (ER) | payer MEDICARE ==
[2019-01-19 14:13] VITALS: RESP 18; TEMP 98.4
--- NOTE | 2019-01-19 15:24 | ED ---
ENT HPI <Jose Ruiz - Last Filed: 01/19/19 18:19> - General Source: patient Mode of arrival: ambulatory Limitations: no limitations <Beatrice Montes - Last Filed: 01/19/19 20:06> - General Chief complaint: ENT Stated complaint: unable to swallow Time Seen by Provider: 01/19/19 14:24 - History of Present Illness Initial comments: 68yo male with PMH of previous cerebellar stroke 6 years ago, previous cervical fusion presenting today for cc of pain with swallowing x 1 day. Patient states that yesterday he noticed that he had pain with swallowing he denies this being difficulty he states he doesnt want to swallow due to the pain, which he states is more right sided the left upon swallowing. Pt states he ate a sandwich prior to arriving today and had no difficulty with the actual action of swallowing only pain. Pt denies fever, chills, night sweats, vomiting, nausea, chest pain, dyspnea, speech changes (pt has baseline slow speech per him and , pt states baseline), pt denies aphasia, confusion, dizziness, muscle weakness, gait changes, headache, visual changes, diplopia. Pt denies any trauma to the head or neck. Pt states that occasionally on and off for the past few weeks he did note that he had tingling in the UE that occurred with specific movements of the upper extremities, he states this was not concerning him. Pt states last MRI of the neck was about 1.5 year ago. pt denies taking and large pill or pills before bed time. Pt denies experiencing this before. Remaining ROS (-), patient denies any recent shortness of breath, chest pain, back pain, abdominal pain, nausea or vomiting, dysuria or hematuria, constipation or diarrhea, or any other complaints. (Beatrice Montes) - Related Data Home Medications Medication Instructions Recorded Confirmed Atorvastatin [Lipitor] 10 mg PO HS 03/01/18 03/01/18 Calcium 333mg/Mag 133mg/Zinc 1 tab PO DAILY 03/01/18 03/01/18 5mg/Vit D 200iu Enoxaparin [Lovenox] 150 mg SQ DAILY 03/01/18 03/01/18 FLUoxetine HCL [PROzac] 10 mg PO DAILY 03/01/18 03/01/18 Levothyroxine Sodium [Synthroid] 75 mcg PO DAILY 03/01/18 03/01/18 Lisinopril [Zestril] 10 mg PO DAILY 03/01/18 03/01/18 Tamsulosin HCl [Flomax] 0.8 mg PO HS 03/01/18 03/01/18 Vitamin B Complex 1 cap PO DAILY 03/01/18 03/01/18 Warfarin Sodium [Coumadin] 4 mg PO DIRECTED 03/01/18 03/01/18 Previous Rx's Medication Instructions Recorded Cephalexin [Keflex] 500 mg PO Q8HR #30 cap 03/04/18 Mupirocin 2% Oint [Bactroban 2% 1 applic TOPICAL BID applic 03/04/18 Oint] Allergies Allergy/AdvReac Type Severity Reaction Status Date / Time Latex, Natural Rubber Allergy Rash/Hives Verified 01/19/19 14:11 Review of Systems ROS Other: All systems not noted in ROS Statement are negative. <Jose Ruiz - Last Filed: 01/19/19 18:19> ROS Other: All systems not noted in ROS Statement are negative. <Beatrice Montes - Last Filed: 01/19/19 20:06> ROS Statement: Those systems with pertinent positive or pertinent negative responses have been documented in the HPI. 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 History of Any Multi-Drug Resistant Organisms: None Reported Past Surgical History: Bladder Surgery, Orthopedic Surgery, Prostate Surgery, Tonsillectomy Additional Past Surgical History / Comment(s): Bladder cancerous polypectomy, prostrate bxs, skin cancer L forehead removed, extra rib extracted, colonoscopy. Past Anesthesia/Blood Transfusion Reactions: No Reported Reaction Past Psychological History: No Psychological Hx Reported Smoking Status: Never smoker Past Alcohol Use History: Occasional Past Drug Use History: None Reported - Past Family History Father Family Medical History: CVA/TIA Additional Family Medical History / Comment(s): Father had a CVA and a year later from complications at the age of 82yrs. Mother Family Medical History: Liver Disease, Musculoskeletal Disorder, Neurologic Disorder, Osteoarthritis (OA) Additional Family Medical History / Comment(s): Mother had 5 total hip surgeries. She had blood transfusions. She had hepatitis C. She had parkinson' s dx. She at the age of 90yrs. <Beatrice Montes - Last Filed: 01/19/19 20:06> General Exam <Jose Ruiz - Last Filed: 01/19/19 18:19> Limitations: no limitations <Beatrice Montes - Last Filed: 01/19/19 20:06> - General Exam Comments Initial Comments: General: The patient is awake and alert, in no distress, and does not appear acutely ill. Eye: +3 mm pupils are equal, round and reactive to light, extra-ocular movements are intact. No nystagmus. No APD. There is normal conjunctiva bilaterally. No signs of icterus. Ears, nose, mouth and throat: There are moist mucous membranes and no oral lesions. Pharynx is mildly erythematous, no tonsillar enlargement exudates or lesions. Uvula midline. Neck: The neck is supple, there is no tenderness or JVD. No anterior cervical adenopathy. No palpable nodules of thyroid, coordinated swallow. No cough, during swallowing/signs of difficulty. Cardiovascular: There is a regular rate and rhythm. No murmur, rub or gallop is appreciated. Respiratory: Lungs are clear to auscultation, respirations are non-labored, breath sounds are equal. No wheezes, stridor, rales, or rhonchi. Gastrointestinal: Soft, non-distended, non-tender abdomen without masses or organomegaly noted. There is no rebound or guarding present. No CVA tenderness. Bowel sounds are unremarkable. Musculoskeletal: Normal ROM, no tenderness. Strength 5/5 of the upper and lower extremities. Sensation intact of the upper and lower extremities equal in comparison b/l. Radial pulses equal bilaterally 2+. Neurological: A&O x 3. CN II-XII intact, There are no obvious motor or sensory deficits. Coordination appears grossly intact. Speech is slow, drawn out-pt baseline per family/pt. Coordinated finger to nose, heel to dewitt. No pronator drift. No finger agnosia. No hemineglect. Skin: Skin is warm and dry and no rashes or lesions are noted. Psychiatric: Cooperative, appropriate mood & affect, normal judgment. (Beatrice Montes) Vital Signs 01/19/19 01/19/19 01/19/19 14:11 15:21 17:52 Temperature 98.4 F Pulse Rate 77 69 70 Respiratory 18 18 18 Rate Blood Pressure 144/86 133/74 122/61 O2 Sat by Pulse 94 L 93 L 95 Oximetry Medical Decision Making - Lab Data Result diagrams: 01/19/19 15:41 01/19/19 15:41 <Jose Ruiz - Last Filed: 01/19/19 18:19> - Lab Data Result diagrams: 01/19/19 15:41 01/19/19 15:41 <Beatrice Montes - Last Filed: 01/19/19 20:06> - Medical Decision Making Medical decision making; this is a 68-year-old male here with his . The patient has had a past history of a stroke. Past 24 hours complaining of discomfort with swallowing to the right neck area. Palpation of the area also causes discomfort mainly when he tries to swallow food or water. Upon questioning the patient states she does take pills sometimes without water and the possibility of a pill esophagitis was discussed. Patient had a workup including a CAT scan with contrast no evidence of any pathology appreciated. The patient was advised to eat soft foods. Drink plenty of fluids. Never take pill without water. Use a combination of 1 teaspoon of Benadryl with a tablespoon of Mylanta to soothe the throat several times a day. If not improving in 24 hours to contact follow-up with his ENT for direct observation endoscopy. Dr. Ruiz (Jose Ruiz) Well appearing 68yo male. Presenting for pain with swallowing. No focal neuro deficits/complaints. Pain in the right side of neck with swallowing CT (-) of soft tissue for infectious process. Mild leukocytosis otherwise labs unremarkable. Pt has no signs of respiratory distress. Able to swallow, admits to pain. Given history of taking pills at times without water, I feel pain most likely due to esophageal esophagitis. Pt was given ENT f/u outpatient and inpatient medication for symptoms relief. Pt was evaluated by attending provider , Dr. Ruiz who agreed with impression and plan after performing own history taking and physical exam. (Beatrice Montes) - Lab Data Lab Results 01/19/19 01/19/19 01/19/19 Range/Units 14:25 15:41 15:41 WBC 11.7 H (3.8-10.6) k/uL RBC 5.03 (4.30-5.90) m/uL Hgb 15.9 (13.0-17.5) gm/dL Hct 46.6 (39.0-53.0) % MCV 92.8 (80.0-100.0) fL MCH 31.6 (25.0-35.0) pg MCHC 34.1 (31.0-37.0) g/dL RDW 13.4 (11.5-15.5) % Plt Count 196 (150-450) k/uL Neutrophils % 82 % Lymphocytes % 9 % Monocytes % 5 % Eosinophils % 3 % Basophils % 1 % Neutrophils # 9.5 H (1.3-7.7) k/uL Lymphocytes # 1.1 (1.0-4.8) k/uL Monocytes # 0.6 (0-1.0) k/uL Eosinophils # 0.3 (0-0.7) k/uL Basophils # 0.1 (0-0.2) k/uL Sodium 142 (137-145) mmol/L Potassium 4.1 (3.5-5.1) mmol/L Chloride 109 H (98-107) mmol/L Carbon Dioxide 23 (22-30) mmol/L Anion Gap 10 mmol/L BUN 24 H (9-20) mg/dL Creatinine 0.86 (0.66-1.25) mg/dL Est GFR (CKD-EPI)AfAm >90 (>60 ml/min/1.73 sqM) Est GFR (CKD-EPI)NonAf >90 (>60 ml/min/1.73 sqM) Glucose 125 H (74-99) mg/dL Calcium 9.3 (8.4-10.2) mg/dL Total Bilirubin 0.9 (0.2-1.3) mg/dL AST 42 (17-59) U/L ALT 33 (21-72) U/L Alkaline Phosphatase 115 (38-126) U/L Troponin I (0.000-0.034) ng/mL Total Protein 7.1 (6.3-8.2) g/dL Albumin 4.3 (3.5-5.0) g/dL Influenza Type A RNA Not Detected (Not Detectd) Influenza Type B (PCR) Not Detected (Not Detectd) 01/19/19 Range/Units 15:41 WBC (3.8-10.6) k/uL RBC (4.30-5.90) m/uL Hgb (13.0-17.5) gm/dL Hct (39.0-53.0) % MCV (80.0-100.0) fL MCH (25.0-35.0) pg MCHC (31.0-37.0) g/dL RDW (11.5-15.5) % Plt Count (150-450) k/uL Neutrophils % % Lymphocytes % % Monocytes % % Eosinophils % % Basophils % % Neutrophils # (1.3-7.7) k/uL Lymphocytes # (1.0-4.8) k/uL Monocytes # (0-1.0) k/uL Eosinophils # (0-0.7) k/uL Basophils # (0-0.2) k/uL Sodium (137-145) mmol/L Potassium (3.5-5.1) mmol/L Chloride (98-107) mmol/L Carbon Dioxide (22-30) mmol/L Anion Gap mmol/L BUN (9-20) mg/dL Creatinine (0.66-1.25) mg/dL Est GFR (CKD-EPI)AfAm (>60 ml/min/1.73 sqM) Est GFR (CKD-EPI)NonAf (>60 ml/min/1.73 sqM) Glucose (74-99) mg/dL Calcium (8.4-10.2) mg/dL Total Bilirubin (0.2-1.3) mg/dL AST (17-59) U/L ALT (21-72) U/L Alkaline Phosphatase (38-126) U/L Troponin I <0.012 (0.000-0.034) ng/mL Total Protein (6.3-8.2) g/dL Albumin (3.5-5.0) g/dL Influenza Type A RNA (Not Detectd) Influenza Type B (PCR) (Not Detectd) Disposition <Jose Ruiz - Last Filed: 01/19/19 18:19> Is patient prescribed a controlled substance at d/c from ED?: No Time of Disposition: 18:22 <Beatrice Montes - Last Filed: 01/19/19 20:06> Clinical Impression: Esophagitis Disposition: HOME SELF-CARE Condition: Good Instructions (If sedation given, give patient instructions): Esophagitis (ED) Additional Instructions: Please use medication as discussed. Please follow-up with family doctor in the next 2 days. Please follow up with ENT in next 1- 2 days. Please return to emergency room if the symptoms increase or worsen or for any other concerns, as discussed. Referrals: Harmony Ocasio DO [Primary Care Provider] - 1-2 days Seb Drake MD [STAFF PHYSICIAN] - 1-2 days
[2019-01-19 15:53] LABS: Basophils # (A) 0.1 k/uL (0-0.2); Basophils % (A) 1 %; Eosinophils # (A) 0.3 k/uL (0-0.7); Eosinophils % (A) 3 %; HCT 46.6 % (39.0-53.0); HGB 15.9 gm/dL (13.0-17.5); Lymphocytes # (A) 1.1 k/uL (1.0-4.8); Lymphocytes % (A) 9 %; MCH 31.6 pg (25.0-35.0); MCHC 34.1 g/dL (31.0-37.0); MCV 92.8 fL (80.0-100.0); Mean Platelet Volume 7.3; Monocytes # (A) 0.6 k/uL (0-1.0); Monocytes % (A) 5 %; Neutrophils # (A) 9.5 k/uL (1.3-7.7); Neutrophils % (A) 82 %; Platelet Count 196 k/uL (150-450); RBC 5.03 m/uL (4.30-5.90); RDW 13.4 % (11.5-15.5); WBC 11.7 k/uL (3.8-10.6)
[2019-01-19 16:02] LABS: ALT 33 U/L (21-72); AST 42 U/L (17-59); Albumin 4.3 g/dL (3.5-5.0); Alkaline Phosphatase 115 U/L (38-126); Anion Gap 10 mmol/L; Blood Urea Nitrogen 24 mg/dL (9-20); Calcium 9.3 mg/dL (8.4-10.2); Carbon Dioxide 23 mmol/L (22-30); Chloride 109 mmol/L (98-107); Glucose 125 mg/dL (74-99); Potassium 4.1 mmol/L (3.5-5.1); Sodium 142 mmol/L (137-145); Total Bilirubin 0.9 mg/dL (0.2-1.3); Total Protein 7.1 g/dL (6.3-8.2)
--- NOTE | 2019-01-19 17:34 | CT ---
EXAMINATION TYPE: CT soft tissue neck w con DATE OF EXAM: 01/19/2019 5:00 PM COMPARISON: None HISTORY: Dysphagia, sore throat CT DLP: 316.8 mGycm Automated exposure control for dose reduction was used. CONTRAST: CT scan of the neck is performed following with IV Contrast, patient injected with 100 mL of Isovue 3 00. Axial images are obtained, coronal and sagittal reformatted images are reviewed. FINDINGS: There is normal branching pattern of the great vessels on the aortic arch. There is no evidence of th yroid mass. There is normal contrast opacification of the carotid arteries and jugular veins. There i s bilateral contrast opacification of the vertebral arteries. Right vertebral artery is larger than l eft. The parotid glands are symmetric. Submandibular salivary glands are symmetric. I see no cervical adenopathy. The epiglottis appears normal. Subglottic trachea appears normal. The tonsils and adenoids are within normal limits. There is cervical spine fusion surgery. I see no bony destructive process. Cervical v ertebra have fairly normal spacing and alignment. There is previous surgery in the ethmoid sinus. The re is mucosal thickening in the right side frontal and ethmoid sinus. There is mucosal thickening at the floor of the maxillary sinuses. Orbital margins are intact. I see no focal bone destruction. IMPRESSION: Sinusitis. Previous sinus surgery. Normal epiglottis. No evidence of pharyngeal mass.
[2019-01-19 17:57] VITALS: BP 122/61; PULSE 70
[2019-01-19] MEDS ORDERED: MAG HYDROX/AL HYDROX/SIMETH 30 ML CUP PO STA (18:21)
[2019-01-19] MEDS ORDERED: diphenhydrAMINE ELIXIR 25 MG/10 ML CUP PO STA (18:21)
== END 2019-01-19 18:35 | disposition home or self-care (01) ==
LOC: EC 14:03
DX: K20.9 Esophagitis, unspecified (principal); E03.9 Hypothyroidism, unspecified; N40.0 Benign prostatic hyperplasia without lower urinary tract symptoms; Z86.73 Personal history of transient ischemic attack (TIA), and cerebral infarction without residual deficits; Z85.828 Personal history of other malignant neoplasm of skin; Z85.51 Personal history of malignant neoplasm of bladder; Z79.890 Hormone replacement therapy; Z79.01 Long term (current) use of anticoagulants; Z79.899 Other long term (current) drug therapy; Z91.040 Latex allergy status
CPT/HCPCS: 36415; 93005; 80053; 84484; 85025; 87502; 70491; 99284; Q9967

== ENCOUNTER → 2019-10-05 | Outpatient (CLI) | payer MEDICARE | END | disposition home or self-care (01) | LOC: LABWHC1 12:02 | PROVIDERS: ATTEND Urology | DX: C61 Malignant neoplasm of prostate (principal) | CPT/HCPCS: 36415; 84153 ==

== ENCOUNTER → 2020-05-20 | Outpatient (CLI) | payer MEDICARE ==
--- NOTE | 2020-05-20 12:31 | MR ---
EXAMINATION TYPE: MR Prostate wo/w con DATE OF EXAM: 05/20/2020 COMPARISON: None. IMAGE QUALITY: . INDICATION: Prostate CA diagnosed January 2019, Bladder CA 2013. PSA: 3.3 ng/ml in September 2019 increased to 4.9 on April 03, 2020. Recent Biopsy and Date: March 09, 2019 Pathology Report (If Applicable): All benign results. TECHNIQUE: Examination was performed using a 3T MRI without an endorectal coil. Multiparametric imaging was perf ormed with T2 mutliplanar sequences, axial diffusion weighted imaging and dynamic contrast enhanced i maging, utilizing 10 mL intravenous Gadavist gadolinium contrast. FINDINGS: There is no clinically significant cancer identified. PROSTATE VOLUME: 4.7 cm SI x 4.4 cm AP x 6.0 cm LR Vol= 65.0 cc PSA DENSITY: 7.8 ng/ml/cc Overall thinned peripheral zone with areas of indistinct hypointensity on the ADC mapping in both rig ht and left lobes. No areas of increased signal on diffusion-weighted images. T2 axial weighted images show heterogeneity with focal 1.3 x 0.9 x 1.3 cm circumscribed hypointense n odule right mid zone level axial image 20. No additional suspicious areas of more ill-defined more hy pointensity on T2-weighted images. Seminal vesicles are all within normal limits. Prosthetic capsule is felt maintained. Adjacent nonspe cific 6 x 5 mm left-sided pelvic lymph node axial image 30 presumed benign. Bladder shows mild diffus e trabeculation. No concerning pelvic ascites. No suspicious bowel dilatation. Visualized osseous str uctures are intact. Benign-appearing bilateral groin lymph nodes are present. IMPRESSION: Heterogeneous enlarged prostate gland consistent with BPH. A focus of clinically significant cancer is not identified. Highest Assessment Category: 2 MRI Stage: T0 N0 M0 based on review of pelvic images. False negative rates for MRI range from 5-20% depending on risk profile. Assessment Categories: 1 ? Very low (clinically significant cancer is highly unlikely to be present) 2 ? Low (clinically significant cancer is unlikely to be present) 3 ? Intermediate (the presence of clinically significant cancer is equivocal) 4 ? High (clinically significant cancer is likely to be present) 5 ? Very high (clinically significant cancer is highly likely to be present)
== END | disposition home or self-care (01) ==
LOC: RADMRIMAIN 09:47
PROVIDERS: ATTEND Urology
DX: C61 Malignant neoplasm of prostate (principal)
CPT/HCPCS: 84153; 72197; 36415; A9585

== ENCOUNTER 2020-09-01 13:56 | Emergency (ER) | payer MEDICARE ==
[2020-09-01 14:07] VITALS: TEMP 97.9
[2020-09-01] MEDS ORDERED: KETOROLAC 15 MG/ML 1 ML VIAL IM STA (14:21)
[2020-09-01] MEDS ORDERED: KETOROLAC 15 MG/ML 1 ML VIAL IVP STA (14:25)
--- NOTE | 2020-09-01 14:40 | ED ---
General Adult HPI - General Chief complaint: Extremity Injury, Lower Stated complaint: post op pain Time Seen by Provider: 09/01/20 14:10 Source: patient, RN notes reviewed, old records reviewed Mode of arrival: ambulatory Limitations: no limitations - History of Present Illness Initial comments: 70-year-old male patient presents to ED for evaluation of right knee pain swelling. Patient had a meniscus surgery done 5 days ago. Since then he has been having some increasing pain and swelling in the knee region. Patient concerned about possible blood clot. Denies any other areas of pain any chest pain or shortness of breath. Systemic: Pt denies fatigue, fever/chills, rash. Pt denies weakness, night sweats, weight loss. Neuro: Pt denies headache, visual disturbances, syncope or pre-syncope. HEENT: Pt denies ocular discharge or irritation, otalgia, rhinorrhea, pharyngitis or notable lymphadenopathy. Cardiopulmonary: Pt denies chest pain, SOB, heart palpitations, dyspnea on exertion. Abdominal/GI: Pt denies abdominal pain, n/v/d. : Pt denies dysuria, burning w/ urination, frequency/urgency. Denies new onset urinary or bowel incontinence. Neuro: Pt denies new onset weakness, paresthesias. - Related Data Home Medications Medication Instructions Recorded Confirmed Atorvastatin [Lipitor] 10 mg PO HS 03/01/18 03/01/18 Calcium 333mg/Mag 133mg/Zinc 1 tab PO DAILY 03/01/18 03/01/18 5mg/Vit D 200iu Enoxaparin [Lovenox] 150 mg SQ DAILY 03/01/18 03/01/18 FLUoxetine HCL [PROzac] 10 mg PO DAILY 03/01/18 03/01/18 Levothyroxine Sodium [Synthroid] 75 mcg PO DAILY 03/01/18 03/01/18 Tamsulosin HCl [Flomax] 0.8 mg PO HS 03/01/18 03/01/18 Vitamin B Complex 1 cap PO DAILY 03/01/18 03/01/18 Warfarin Sodium [Coumadin] 4 mg PO DIRECTED 03/01/18 03/01/18 lisinopriL [Zestril] 10 mg PO DAILY 03/01/18 03/01/18 Previous Rx's Medication Instructions Recorded Cephalexin [Keflex] 500 mg PO Q8HR #30 cap 03/04/18 Mupirocin 2% Oint [Bactroban 2% 1 applic TOPICAL BID applic 03/04/18 Oint] Allergies Allergy/AdvReac Type Severity Reaction Status Date / Time Latex, Natural Rubber Allergy Rash/Hives Verified 09/01/20 14:07 Review of Systems ROS Statement: Those systems with pertinent positive or pertinent negative responses have been documented in the HPI. ROS Other: All systems not noted in ROS Statement are negative. 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 History of Any Multi-Drug Resistant Organisms: None Reported Past Surgical History: Bladder Surgery, Orthopedic Surgery, Prostate Surgery, Tonsillectomy Additional Past Surgical History / Comment(s): Bladder cancerous polypectomy, prostrate bxs, skin cancer L forehead removed, extra rib extracted, colonoscopy. Past Anesthesia/Blood Transfusion Reactions: No Reported Reaction Past Psychological History: No Psychological Hx Reported Smoking Status: Never smoker Past Alcohol Use History: Occasional Past Drug Use History: None Reported - Past Family History Father Family Medical History: CVA/TIA Additional Family Medical History / Comment(s): Father had a CVA and a year later from complications at the age of 82yrs. Mother Family Medical History: Liver Disease, Musculoskeletal Disorder, Neurologic Disorder, Osteoarthritis (OA) Additional Family Medical History / Comment(s): Mother had 5 total hip surgeries. She had blood transfusions. She had hepatitis C. She had parkinson's dx. She at the age of 90yrs. General Exam - General Exam Comments Initial Comments: Constitutional: NAD, AOX3, Pt has pleasant affect. HEENT: NC/AT, trachea midline, neck supple, no lymphadenopathy. External ears appear normal, without discharge. Mucous membranes moist. Eyes PERRLA, EOM intact. There is no scleral icterus. No pallor noted. Cardiopulmonary: RRR, no murmurs, rubs or gallops, no JVD noted. Lungs CTAB in anterior and posterior pop. No peripheral edema. Abdominal exam: Abdomen soft and non-distended. Abdomen non-tender to palpation in all 4 quadrants. Bowel sounds active in LLQ. No hepatosplenomegaly. No ecchymosis Neuro: CN II-XII grossly intact. No nuchal rigidity. No raccon eyes, no espinoza sign, no hemotympanum. No cervical spinal tenderness. MSK: mild tenderness to the anterior knee generalized. Mild amount of edema. No erythema. Incision sites are clean and dry. No posterior tenderness whatsoever. No posterior calf tenderness bilaterally, homans sign negative bilaterally. Posterior tibialis and radial pulse +2 bilaterally. Sensation intact in upper and lower extremities. Limitations: no limitations Course Vital Signs 09/01/20 14:05 Temperature 97.9 F Pulse Rate 78 Respiratory 18 Rate Blood Pressure 135/59 O2 Sat by Pulse 98 Oximetry Medical Decision Making - Medical Decision Making 70-year-old male patient passed ED for evaluation of postoperative pain and swelling in the status post mastectomy on Wednesday. Knee is somewhat swollen however there are no skin changes. Patient concerned about blood clot. ultrasound is negative for DVT. regulation factors and CBC are within Limits. Patient is on Coumadin and is increasing his dose to get back up to the ther apeutic range. Currently 1.2. Will discharge with outpatient orthopedic and primary care follow-up. Case discussed with Dr. Shahid. - Lab Data Result diagrams: 09/01/20 14:24 Lab Results 09/01/20 09/01/20 Range/Units 14:24 14:24 WBC 12.8 H (3.8-10.6) k/uL RBC 4.47 (4.30-5.90) m/uL Hgb 13.8 (13.0-17.5) gm/dL Hct 40.8 (39.0-53.0) % MCV 91.3 (80.0-100.0) fL MCH 30.8 (25.0-35.0) pg MCHC 33.8 (31.0-37.0) g/dL RDW 13.2 (11.5-15.5) % Plt Count 233 (150-450) k/uL Neutrophils % 84 % Lymphocytes % 8 % Monocytes % 6 % Eosinophils % 1 % Basophils % 0 % Neutrophils # 10.8 H (1.3-7.7) k/uL Lymphocytes # 1.0 (1.0-4.8) k/uL Monocytes # 0.7 (0-1.0) k/uL Eosinophils # 0.2 (0-0.7) k/uL Basophils # 0.0 (0-0.2) k/uL PT 12.3 H (9.0-12.0) sec INR 1.2 H (<1.2) APTT 28.5 (22.0-30.0) sec Disposition Clinical Impression: Post-operative pain Disposition: HOME SELF-CARE Condition: Stable Instructions (If sedation given, give patient instructions): Knee Pain (ED) Additional Instructions: follow-up with primary care provider and orthopedic surgeon tomorrow. Return to ER if any worsening symptoms. Is patient prescribed a controlled substance at d/c from ED?: No Referrals: Harmony Ocasio DO [Primary Care Provider] - 1-2 days
[2020-09-01 14:44] LABS: Basophils % (A) 0 %; Eosinophils # (A) 0.2 k/uL (0-0.7); Eosinophils % (A) 1 %; HCT 40.8 % (39.0-53.0); HGB 13.8 gm/dL (13.0-17.5); Lymphocytes % (A) 8 %; MCH 30.8 pg (25.0-35.0); MCHC 33.8 g/dL (31.0-37.0); MCV 91.3 fL (80.0-100.0); Mean Platelet Volume 7.3; Monocytes # (A) 0.7 k/uL (0-1.0); Monocytes % (A) 6 %; Neutrophils # (A) 10.8 k/uL (1.3-7.7); Neutrophils % (A) 84 %; Platelet Count 233 k/uL (150-450); RBC 4.47 m/uL (4.30-5.90); RDW 13.2 % (11.5-15.5); WBC 12.8 k/uL (3.8-10.6)
[2020-09-01 15:22] LABS: INR 1.2 (<1.2); Partial Thromboplastin Time 28.5 sec (22.0-30.0); Prothrombin Time 12.3 sec (9.0-12.0)
--- NOTE | 2020-09-01 15:23 | US ---
EXAMINATION TYPE: US venous doppler duplex LE RT DATE OF EXAM: 09/01/2020 3:08 PM COMPARISON: NONE CLINICAL HISTORY: post op pain . Right knee surgery x 4 days ago. Pain. Swelling. SIDE PERFORMED: Right TECHNIQUE: The lower extremity deep venous system is examined utilizing real time linear array sonog marya with graded compression, doppler sonography and color-flow sonography. VESSELS IMAGED: External Iliac Vein (EIV) Common Femoral Vein Deep Femoral Vein Greater Saphenous Vein * Femoral Vein Popliteal Vein Small Saphenous Vein * Proximal Calf Veins (* superficial vessels) Right Leg: Negative for DVT IMPRESSION: No evidence of right leg deep vein thrombosis.
[2020-09-01 15:53] VITALS: BP 126/66; PULSE 62; RESP 16
== END 2020-09-01 15:56 | disposition home or self-care (01) ==
LOC: EC 13:56
DX: G89.18 Other acute postprocedural pain (principal); M25.561 Pain in right knee; R22.41 Localized swelling, mass and lump, right lower limb; E03.9 Hypothyroidism, unspecified; Z79.890 Hormone replacement therapy; Z79.01 Long term (current) use of anticoagulants; Z91.040 Latex allergy status; Z85.51 Personal history of malignant neoplasm of bladder; Z85.828 Personal history of other malignant neoplasm of skin; Z85.46 Personal history of malignant neoplasm of prostate; Z86.73 Personal history of transient ischemic attack (TIA), and cerebral infarction without residual deficits
CPT/HCPCS: 36415; 85025; 85610; 85730; 93971; 99284; 96374; J1885

== ENCOUNTER → 2020-10-04 | Outpatient (CLI) | payer MEDICARE | END | disposition home or self-care (01) | LOC: LABWHC1 10:46 | PROVIDERS: ATTEND Urology | DX: C61 Malignant neoplasm of prostate (principal) | CPT/HCPCS: 36415; 84153 ==